=== PATIENT | female | born 1985 | race American Indian/Alaskan Native ===

== ENCOUNTER 2017-07-01 10:13 | Emergency (ER) | payer OTHER ==
[~2017-07-01] VITALS: Ht 160 cm; Wt 49.0 kg
[~2017-07-01 10:13] MED LIST: PROVENTIL HFA6.7 GM INH
[2017-07-01] MEDS ORDERED: ZOFRAN ODT4 MG PO (12:03)
[2017-07-01] MEDS ORDERED: PROTONIX20 MG PO (12:03)
[2017-08-16] MEDS ORDERED: NORCO 5-325 TA1 EACH PO (23:58)
[2017-08-16] MEDS ORDERED: IBUPROFEN600 MG PO (23:59)
== END 2017-07-01 12:38 | disposition home or self-care (01) ==
LOC: ED 10:13
DX: R10.11 Right upper quadrant pain (principal); J45.909 Unspecified asthma, uncomplicated
CPT/HCPCS: 76705; 80053; 81001; 83690; 84703; 85025; 96361; 96374; 96375; 99284; J1885; J7030

== ENCOUNTER → 2017-08-16 | Emergency (ER) | payer OTHER ==
[~2017-08-16] VITALS: Ht 160 cm; Wt 47.6 kg
[~2017-08-16] MED LIST changes: +IBUPROFEN600 MG PO; +NORCO 5-325 TA1 EACH PO; +PROTONIX20 MG PO; +ZOFRAN ODT4 MG PO
== END ==
LOC: ED 19:46
DX: M54.5 Low back pain (principal); Z79.899 Other long term (current) drug therapy
CPT/HCPCS: 72131; 84703; 96372; 99284; J1885; J2270

== ENCOUNTER 2020-12-13 11:21 | Emergency (ER) | payer OTHER ==
[~2020-12-13] VITALS: Ht 160 cm; Wt 50.8 kg
[~2020-12-13 11:21] MED LIST changes: +ULTRAM50 MG PO
--- OUTSIDE RECORDS SUMMARY | 2020-12-13 14:16 | XMS ---
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 [place] has no Care Guidelines for this patient. [place] VISIT COUNT (12 MO.) 1 ISABELL Prado TOTAL 1 NOTE: Visits indicate total known visits. ED/C VISIT TRACKING (12 MO.) 12/13/2020 11:23 ISBAELL Mohan [place] TYPE: Emergency COMPLAINT: - L SIDE NUMBNESS INPATIENT VISIT TRACKING (12 MO.) No inpatient visits to display in this time frame [id number]
--- NOTE | 2020-12-13 20:13 | EKG ---
[facility] [address] [place], [place] [address] Signed Normal sinus rhythm Incomplete right bundle branch block Borderline ECG No previous ECGs available Confirmed by GLENN ANTHONY MD ([id number] on 12/13/2020 8:13:14 PM Electronically Signed By: GLENN ANTHONY MD 12/13/202012 PATIENT NAME: CONTRERAS FOSTER Electrocardiogram DATE OF : 83 PHYSICIAN: GLENN ANTHONY MD REPORT #: [id number] REPORT IS CONFIDENTIAL AND NOT TO BE RELEASED WITHOUT AUTHORIZATION
== END 2020-12-13 15:42 | disposition home or self-care (01) ==
LOC: ED 11:21
DX: G43.809 Other migraine, not intractable, without status migrainosus (principal); J45.909 Unspecified asthma, uncomplicated; D64.9 Anemia, unspecified
CPT/HCPCS: 70450; 70496; 70498; 70551; 71045; 80053; 81001; 83735; 84484; 84703; 85025; 93005; 93010; 99285-25; A9270-GY; J0780; J1100; J1200; Q9967; U0003

== ENCOUNTER 2021-04-14 04:59 | Emergency (ER) | payer OTHER ==
[~2021-04-14] VITALS: Ht 160 cm; Wt 52.2 kg
--- OUTSIDE RECORDS SUMMARY | 2021-04-14 05:00 | XMS ---
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 P[place]ual has no Care Guidelines for this patient. [place] VISIT COUNT (12 MO.) 2 ISABELL Prado TOTAL 2 NOTE: Visits indicate total known visits. ED/UCC VISIT TRACKING (12 MO.) 04/14/2021 04:59 ISABELL Mohan [place] TYPE: Emergency COMPLAINT: - ABD PAIN, NAUSEA 12/13/2020 11:23 ISABELL Mohan [place] TYPE: Emergency COMPLAINT: - L SIDE NUMBNESS DIAGNOSES: - Weakness - Other migraine, not intractable, without status migrainosus - Anemia, unspecified - Unspecified asthma, uncomplicated INPATIENT VISIT TRACKING (12 MO.) No inpatient visits to display in this time frame [id number]
[2021-04-14] MEDS ORDERED: ADDERALL 10 MG10 MG ×2 (05:21→05:35)
[2021-04-14] MEDS ORDERED: ZOFRAN4 MG PO (13:03)
[2021-04-14] MEDS ORDERED: PERCOCET 5-3251 EACH PO (13:03)
== END 2021-04-14 13:20 | disposition home or self-care (01) ==
LOC: ED 04:59
DX: N83.201 Unspecified ovarian cyst, right side (principal); J45.909 Unspecified asthma, uncomplicated; D64.9 Anemia, unspecified; Z79.899 Other long term (current) drug therapy
CPT/HCPCS: 74177; 76830; 76856; 80053; 81001; 83690; 84703; 85025; 96375; 96376; 99284-25; G0480; J1170; J2405; J7030; Q9967

== ENCOUNTER 2021-12-21 01:39 | Emergency (ER) | payer OTHER ==
[~2021-12-21] VITALS: Ht 160 cm; Wt 52.2 kg
[~2021-12-21 01:39] MED LIST changes: +ADDERALL 10 MG10 MG; +PERCOCET 5-3251 EACH PO; +ZOFRAN4 MG PO
--- OUTSIDE RECORDS SUMMARY | 2021-12-21 01:46 | XMS ---
PreManage Notification: CONTRERAS FOSTER Security Filling Mixer Events No recent Security Events currently on file CRITERIA MET - PDMP - Group Notification CARE PROVIDERS There are no care providers on record at this time. P[place]ual has no Care Guidelines for this patient. [place]hela VISIT COUNT (12 MO.) 2 ISABELL Prado TOTAL 2 NOTE: Visits indicate total known visits. ED/UCC VISIT TRACKING (12 MO.) 12/21/2021 01:40 ISABELL Mohan [place] TYPE: Emergency COMPLAINT: - ABD PAIN 04/14/2021 04:59 ISABELL Mohan [place] TYPE: Emergency COMPLAINT: - ABD PAIN, NAUSEA DIAGNOSES: - Unspecified ovarian cyst, right side - Nausea with vomiting, unspecified - Anemia, unspecified - Unspecified asthma, uncomplicated - Other fdc (current) drug therapy INPATIENT VISIT TRACKING (12 MO.) No inpatient visits to display in this time frame [id number]
[2021-12-21] MEDS ORDERED: HYDROCODON-ACE1 EA10 PO (03:36)
== END 2021-12-21 04:08 | disposition home or self-care (01) ==
LOC: ED 01:39
DX: N83.201 Unspecified ovarian cyst, right side (principal); J45.909 Unspecified asthma, uncomplicated; D64.9 Anemia, unspecified
CPT/HCPCS: 36415; 76830; 76856; 80048; 81001; 84703; 85025; 96374; 96375; 96376; 99284-25; A9270; J1885; J2270; J2405

== ENCOUNTER 2023-12-10 01:26 | Emergency (ER) | payer OTHER ==
[~2023-12-10] VITALS: Ht 160 cm; Wt 57.0 kg
[~2023-12-10 01:26] MED LIST changes: +HYDROCODON-ACE1 EA10 PO; +ONDANSETRON ODT8 MG PO
--- OUTSIDE RECORDS SUMMARY | 2023-12-10 01:28 | XMS ---
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 E.D. VISIT COUNT (12 MO.) 1 ISABELL Prado TOTAL 1 NOTE: Visits indicate total known visits. ED/UCC VISIT TRACKING (12 MO.) 12/10/2023 01:27 ISABELL Mohan [place] TYPE: Emergency COMPLAINT: - ABD PAIN INPATIENT VISIT TRACKING (12 MO.) No inpatient visits to display in this time frame [id number]
[2023-12-10] MEDS ORDERED: KETOROLAC TROMETHAMINE 30 MG/ML VIAL IV ONE (01:45)
[2023-12-10] MEDS ORDERED: LACTATED RINGER'S 1,000 ML IV ONE (01:45)
[2023-12-10] MEDS ORDERED: fentaNYL citrate 100 MCG/2 ML VIAL IV ONE (01:45)
[2023-12-10 01:54] LABS: BASOPHILS 0.7 % (0-2); EOSINOPHILS 1.3 % (0-6); HEMATOCRIT 39.3 % (35.0-50.0); HEMOGLOBIN 12.6 g/dL (12.0-18.0); LYMPHOCYTES 45.6 % (24-44); MCH 26.1 (27-36); MCHC 32.2 g/dl (30-36); MCV 81.2 fl (81-99); MONOCYTES 8.6 % (0-12); NEUTROPHILS 43.8 % (39-80); PLATELET COUNT 198 K/uL (140-440); RBC 4.84 M/ul (4.3-5.7); RDW 16.1 (10.5-15.0)
[2023-12-10] MEDS ORDERED: ondansetron HCL 4 MG/2 ML VIAL IV ONE (02:00)
[2023-12-10 02:09] LABS: ALBUMIN 3.6 g/dL (3.4-5.0); ALBUMIN/GLOBULIN RATIO 0.95 (1.1-2.4); ANION GAP 13.6 (7-21); BILIRUBIN, TOTAL 0.3 ng/dL (0.2-1.0); BUN/CREATININE RATIO 14.11 (6.0-28.6); CALCIUM 8.4 mg/dL (8.5-10.1); CREATININE, SERUM 0.85 mg/dL (0.55-1.02); POTASSIUM 3.6 mmol/L (3.5-5.1); PROTEIN, TOTAL 7.4 g/dL (6.4-8.2)
[2023-12-10 02:48] LABS: BILIRUBIN, URINE NEGATIVE (negative); BLOOD/HGB, URINE NEGATIVE (Negative); KETONE, URINE NEGATIVE (Negative); LEUK ESTERASE, URINE NEGATIVE (negative); NITRITE, URINE NEGATIVE (negative)
[2023-12-10] MEDS ORDERED: HYDROCODONE/ACETA 5/325 TAB PO ONE (03:00)
[2023-12-10] MEDS ORDERED: HYDROCODONE BIT/ACETAMINOPHEN 5/325 MG 1 TAB HOME.PACK PO ONE (04:15)
[2023-12-10 04:23] VITALS: BP 120/91
== END 2023-12-10 04:20 | disposition home or self-care (01) ==
LOC: ED 01:26
PROVIDERS: Internal Medicine
DX: R10.2 Pelvic and perineal pain (principal); J45.909 Unspecified asthma, uncomplicated
CPT/HCPCS: 36415; 76830; 76856; 80053; 81003; 84703; 85025; 96374; 96375; 99284; A9270; J1885; J2405; J3010; J7121

== ENCOUNTER 2024-02-08 22:45 | Emergency (ER) | payer OTHER ==
[~2024-02-08] VITALS: Ht 160 cm; Wt 58.0 kg
--- OUTSIDE RECORDS SUMMARY | 2024-02-08 22:51 | XMS ---
PreManage Notification: CONTRERAS FOSTER Security Skiing Teacher Events No recent Security Events currently on file CRITERIA MET - Group Notification CARE PROVIDERS -, [facility]ist: Gas Attendant [facility] PHONE: [phone] -[place]- Dentist: Gas Attendant Current [facility] PHONE: [phone] [facility]: [facility] Current \F\ [facility] PHONE: [phone] P[place]ual has no Care Guidelines for this patient. E.D. VISIT COUNT (12 MO.) 2 ISABELL Prado TOTAL 2 NOTE: Visits indicate total known visits. ED/UCC VISIT TRACKING (12 MO.) 02/08/2024 22:45 ISABELL Mohan [place] TYPE: Emergency COMPLAINT: - BACK PAIN 12/10/2023 01:27 ISABELL Mohan [place] TYPE: Emergency COMPLAINT: - ABD PAIN DIAGNOSES: - Pelvic and perineal pain - Unspecified asthma, uncomplicated INPATIENT VISIT TRACKING (12 MO.) No inpatient visits to display in this time frame [id number]
[2024-02-08] MEDS ORDERED: KETOROLAC TROMETHAMINE 60 MG/2 ML VIAL IM ONE (23:15)
[2024-02-08] MEDS ORDERED: LIDOCAINE HCL 4% 1 EACH PATCH TD ONE (23:15)
[2024-02-08 23:45] LABS: BILIRUBIN, URINE NEGATIVE (negative); BLOOD/HGB, URINE NEGATIVE (Negative); KETONE, URINE NEGATIVE (Negative); LEUK ESTERASE, URINE NEGATIVE (negative); NITRITE, URINE NEGATIVE (negative)
[2024-02-08] MEDS ORDERED: HYDROCODONE/ACETA 7.5/325 TAB PO ONE (23:45)
[2024-02-09] MEDS ORDERED: LIDODERM1 EACH TOP (01:40)
[2024-02-09] MEDS ORDERED: HYDROCODONE BIT/ACETAMINOPHEN 5/325 MG 1 TAB HOME.PACK PO ONE (01:45)
[2024-02-09 01:53] VITALS: BP 120/79
[2024-02-09] MEDS ORDERED: LIDOCAINE PATCH REMOVAL 1 EA TD SCH (21:00)
== END 2024-02-09 01:53 | disposition home or self-care (01) ==
LOC: ED 22:45
PROVIDERS: Internal Medicine
DX: S39.012A Strain of muscle, fascia and tendon of lower back, initial encounter (principal); X58.XXXA Exposure to other specified factors, initial encounter; J45.909 Unspecified asthma, uncomplicated
CPT/HCPCS: 72131; 81003; 84703; 96372; 99284-25; A9270; J1885

== ENCOUNTER 2024-09-18 22:03 | Emergency (ER) | payer OTHER ==
[~2024-09-18] VITALS: Ht 160 cm; Wt 58.0 kg
[~2024-09-18 22:03] MED LIST changes: +LIDODERM1 EACH TOP
--- OUTSIDE RECORDS SUMMARY | 2024-09-18 22:10 | XMS ---
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 E.D. VISIT COUNT (12 MO.) 3 ISABELL Prado TOTAL 3 NOTE: Visits indicate total known visits. ED/UCC VISIT TRACKING (12 MO.) 09/18/2024 22:03 ISABELL Mohan [place] TYPE: Emergency COMPLAINT: - BACK PAIN 02/08/2024 22:45 ISABELL Mohan [place] TYPE: Emergency COMPLAINT: - BACK PAIN DIAGNOSES: - Exposure to other specified factors, initial encounter - Low back pain, unspecified - Strain of muscle, fascia and tendon of lower back, initial encounter - Unspecified asthma, uncomplicated 12/10/2023 01:27 ISABELL Mohan [place] TYPE: Emergency COMPLAINT: - ABD PAIN DIAGNOSES: - Pelvic and perineal pain - Unspecified asthma, uncomplicated INPATIENT VISIT TRACKING (12 MO.) No inpatient visits to display in this time frame [id number]
[2024-09-18] MEDS ORDERED: KETOROLAC TROMETHAMINE 30 MG/ML VIAL IV ONE (23:00)
[2024-09-18] MEDS ORDERED: CYCLOBENZAPRINE HCL 10 MG TAB PO ONE (23:30)
[2024-09-18] MEDS ORDERED: KETOROLAC TROMETHAMINE 30 MG/ML VIAL IM ONE (23:30)
[2024-09-18 23:57] LABS: BILIRUBIN, URINE NEGATIVE (negative); BLOOD/HGB, URINE NEGATIVE (Negative); KETONE, URINE NEGATIVE (Negative); LEUK ESTERASE, URINE NEGATIVE (negative); NITRITE, URINE NEGATIVE (negative)
[2024-09-19 00:14] LABS: AMPHETAMINES, URINE NEGATIVE (NEGATIVE); BARBITURATES, URINE NEGATIVE (NEGATIVE); BENZODIAZEPINE, URINE NEGATIVE (NEGATIVE); BUPRENORPHINE, URINE NEGATIVE (NEGATIVE); CANNABINOID, URINE NEGATIVE (NEGATIVE); COCAINE, URINE NEGATIVE (NEGATIVE); ECSTASY, URINE NEGATIVE (NEGATIVE); FENTANYL, URINE NEGATIVE (NEGATIVE); METHADONE, URINE NEGATIVE (NEGATIVE); OPIATES, URINE NEGATIVE (NEGATIVE); OXYCODONE, URINE NEGATIVE (NEGATIVE); PHENCYCLIDINE, URINE NEGATIVE (NEGATIVE)
[2024-09-19] MEDS ORDERED: OXYCODONE HCL 5 MG TAB PO ONE (00:30)
[2024-09-19] MEDS ORDERED: CYCLOBENZAPRINE10 MG PO (01:20)
[2024-09-19] MEDS ORDERED: HYDROCODONE BIT/ACETAMINOPHEN 5/325 MG 1 TAB HOME.PACK PO ONE (01:30)
[2024-09-19 01:48] VITALS: BP 118/87
== END 2024-09-19 01:49 | disposition home or self-care (01) ==
LOC: ED 22:03
PROVIDERS: Internal Medicine
DX: S39.012A Strain of muscle, fascia and tendon of lower back, initial encounter (principal); W18.42XA Slipping, tripping and stumbling without falling due to stepping into hole or opening, initial encounter; J45.909 Unspecified asthma, uncomplicated; Z79.899 Other long term (current) drug therapy
CPT/HCPCS: 80307; 81001; 81003; 96372; 99283; A9270; J1885